=== PATIENT | female | born 1945 | race Caucasian/White ===

== ENCOUNTER → 2021-10-21 | Day surgery (SDC) | payer MEDICARE ==
[2021-10-16 12:46] LABS: BASOPHILS # (AUTO) 0.1 (0.0-0.1); BASOPHILS % 0.8 % (0.0-1.0); EOSINOPHILS # (AUTO) 0.2 (0.0-0.4); EOSINOPHILS % 2.1 % (0.0-6.0); HEMATOCRIT 41.1 % (34.2-44.1); HEMOGLOBIN 13.2 g/dL (12.0-16.0); LYMPHOCYTES # (AUTO) 1.9 (1.0-3.2); LYMPHOCYTES % 20.4 % (18.0-39.1); MEAN CORPUSCULAR HEMOGLOBIN 30.8 pg (28-32); MEAN CORPUSCULAR HGB CONC 32.1 g/dL (31-35); MONOCYTES % 10.9 % (4.4-11.3); NEUTROPHILS % 65.5 % (38.7-80.0); PLATELET COUNT 250 x10e3/uL (140-360); RED BLOOD COUNT 4.28 x10e6/uL (3.6-5.1); RED CELL DISTRIBUTION WIDTH 12.3 % (11.7-14.4)
[2021-10-16 13:10] LABS: ALBUMIN 3.8 g/dL (3.5-5.0); ALBUMIN/GLOBULIN RATIO 1.3 (0.8-2.0); ANION GAP 16.4 mmol/L (8-16); CALCIUM 9.4 mg/dL (8.4-10.2); CREATININE, SERUM 1.2 mg/dL (0.57-1.11); POTASSIUM 4.4 mmol/L (3.5-5.1)
[2021-10-21] VITALS (10 sets, daily range): BP systolic 121–152; BP diastolic 63–97
[~2021-10-21] VITALS: Ht 157.5 cm; Wt 90.3 kg
[~2021-10-21] MED LIST: ALPRAZOLAM 0.5 MG TAB ONE; BRINZOLAMIDE15 ML; DIPHENHYDRAMINE HCL 25 MG CAP ONE; FENTANYL CITRATE/PF 100MCG/2 ML INJ ONE; FUROSEMIDE40 MG PO; HEPARIN SOD/SOD CHLORIDE 2,000 ML ONE; IOPAMIDOL 370 MG/ML 100 ML INFUS..BTL INJ ONE; LIDOCAINE HCL 1% LOCAL INJ 20 ML VIAL ONE; LOSARTAN POTAS100 MG PO; LUMIGAN2.5 M1 OP; MIDAZOLAM HCL 2 MG/2 ML VIAL ONE; MONTELUKAST SOD10 MG PO; SODIUM CHLORIDE 0.9% 1000ML 1,000 ML ONE; SYMBICORT 16010.2 GM INH; VERAPAMIL HCL 2.5 MG/ML 2 ML VIAL ONE; ZYRTEC10 M3 PO; [UNRECOGNIZED DRUG - OTHER]; [UNRECOGNIZED DRUG - OTHER]
== END | disposition home or self-care (01) ==
LOC: CATH LAB 10:43
PROVIDERS: ATTEND Internal Medicine Interventional Cardiology
DX: I25.119 Atherosclerotic heart disease of native coronary artery with unspecified angina pectoris (principal); R94.39 Abnormal result of other cardiovascular function study; Z01.812 Encounter for preprocedural laboratory examination; Z20.822 Contact with and (suspected) exposure to COVID-19; Z79.899 Other long term (current) drug therapy
CPT/HCPCS: 0223U; 36415; 76937; 80053; 85025; 93458; C1894; J2001; J2250; J3010; J7030; Q9967; 99152

== ENCOUNTER 2022-05-14 07:54 | Observation (INO) | payer MEDICARE ==
[2022-05-12 10:57] LABS: BASOPHILS # (AUTO) 0.1 (0.0-0.1); BASOPHILS % 0.7 % (0.0-1.0); EOSINOPHILS # (AUTO) 0.3 (0.0-0.4); EOSINOPHILS % 2.5 % (0.0-6.0); HEMATOCRIT 43.3 % (34.2-44.1); LYMPHOCYTES # (AUTO) 3.2 (1.0-3.2); LYMPHOCYTES % 29.8 % (18.0-39.1); MEAN CORPUSCULAR HGB CONC 32.3 g/dL (31-35); MONOCYTES # (AUTO) 1.2 (0.2-0.8); MONOCYTES % 11.2 % (4.4-11.3); NEUTROPHILS # (AUTO) 5.9 (2.1-6.9); NEUTROPHILS % 55.4 % (38.7-80.0); PLATELET COUNT 266 x10e3/uL (140-360); RED BLOOD COUNT 4.51 x10e6/uL (3.6-5.1); RED CELL DISTRIBUTION WIDTH 13.1 % (11.7-14.4)
[2022-05-12 11:08] LABS: INR 0.91; PROTHROMBIN TIME 12.8 seconds (11.9-14.5)
[2022-05-12 11:09] LABS: PARTIAL THROMBOPLASTIN TIME 38.8 seconds (23.8-35.5)
[2022-05-12 11:17] LABS: CALCIUM 9.6 mg/dL (8.4-10.2); CREATININE, SERUM 1.31 mg/dL (0.57-1.11)
[~2022-05-14] VITALS: Ht 157.5 cm; Wt 90.3 kg
[~2022-05-14 07:54] MED LIST changes: +ACETAMINOPHEN 1000 MG/100 ML 100 ML IV ONE; -ALPRAZOLAM 0.5 MG TAB ONE; +BUPIVACAINE 0.5%/EPI 30 ML SDV INJ ONE; +COMBIVENT RESPIM4 GM IH; -DIPHENHYDRAMINE HCL 25 MG CAP ONE; -FENTANYL CITRATE/PF 100MCG/2 ML INJ ONE; +FLONASE ALLERG9.9 ML INH; -HEPARIN SOD/SOD CHLORIDE 2,000 ML ONE; -IOPAMIDOL 370 MG/ML 100 ML INFUS..BTL INJ ONE; -LIDOCAINE HCL 1% LOCAL INJ 20 ML VIAL ONE; -MIDAZOLAM HCL 2 MG/2 ML VIAL ONE; -SODIUM CHLORIDE 0.9% 1000ML 1,000 ML ONE; +SODIUM CHLORIDE 0.9% 250ML 250 ML ONE; +SUGAMMADEX SODIUM 200 MG/2 ML VIAL IV ONE; +THROMBIN FOR SOLN 5,000 UNIT VIAL ONE; -VERAPAMIL HCL 2.5 MG/ML 2 ML VIAL ONE; +Vancomycin IV 1 GM VIAL ONE
[2022-05-14] MEDS ORDERED: HYDROCODON-ACE1 EA12 PO (09:21)
[2022-05-14] MEDS ORDERED: CARISOPRODOL 350 MG TAB PO PRN (09:30)
[2022-05-14] MEDS ORDERED: MORPHINE SULFATE 5 MG/ML VIAL IM PRN (09:30)
[2022-05-14] MEDS ORDERED: FUROSEMIDE 20 MG TAB PO PRN (09:30)
[2022-05-14] MEDS ORDERED: HYDROMORPHONE 2MG/ML 2 MG/ML ML IV PRN (09:30)
[2022-05-14] MEDS ORDERED: ZOLPIDEM TARTRATE 5 MG TAB PO PRN (09:30)
[2022-05-14] MEDS ORDERED: MAGNESIUM/ALUMINUM/SIMETHICONE 30 ML UDC PO PRN (09:30)
[2022-05-14] MEDS ORDERED: ACETAMINOPHEN 325 MG TAB PO PRN (09:30)
[2022-05-14] MEDS ORDERED: PROMETHAZINE HCL (IM) 25 MG/ML VIAL IM PRN (09:30)
[2022-05-14] MEDS ORDERED: ONDANSETRON HCL INJ 2MG/ML 2ML 2 MG/ML VIAL IV PRN (09:30)
[2022-05-14] MEDS ORDERED: IPRATROPIUM/ALBUTEROL SULFATE 4 GM INH INH PRN (09:30)
[2022-05-14] MEDS ORDERED: FENTANYL CITRATE/PF 100MCG/2 ML INJ ONE ×2 (09:41→12:58)
[2022-05-14] MEDS ORDERED: HYDROMORPHONE 1MG/1ML INJ ONE (10:48)
[2022-05-14 11:06] VITALS: BP_SYST 128; BP_SYST 144; BP_DIAS 62; BP_DIAS 64
[2022-05-14] MEDS ORDERED: ROCURONIUM BROMIDE 10 MG/ML 5ML VIAL IV ONE (11:45)
[2022-05-14] MEDS ORDERED: LIDOCAINE HCL 2% LOCAL INJ 5 ML SDV VIAL INJ ONE (11:45)
[2022-05-14] MEDS ORDERED: DEXAMETHASONE SOD PHOS INJ 4 MG/ML SDV ONE (11:45)
[2022-05-14] MEDS ORDERED: PROPOFOL IV EMULSION 10 MG/ML 20 ML VIAL ONE (11:45)
[2022-05-14] MEDS ORDERED: EPHEDRINE SULFATE INJ 50 MG/ML VIAL ONE (11:45)
[2022-05-14] MEDS ORDERED: ALBUTEROL SULFATE HFA 8GM INHALATION AEROSOL INH ONE (11:45)
[2022-05-14] MEDS ORDERED: SEVOFLURANE INHAL SOLN 250 ML PEN BTL ONE (11:45)
[2022-05-14] MEDS ORDERED: POVIDONE IODINE 0.05% 0.05 % ML PO ONE (11:45)
[2022-05-14] MEDS ORDERED: ONDANSETRON HCL INJ 2MG/ML 2ML 2 MG/ML VIAL ONE (11:45)
[2022-05-14 12:00] VITALS: BP 144/62
[2022-05-14] MEDS: LACTATED RINGER'S 1,000 ML IV SCH ×2 (13:27→17:50)
[2022-05-14 16:33] VITALS: BP 125/62
[2022-05-14] MEDS ORDERED: NON-FORMULARY MEDICATION (Fluticasone Propionate* (Flonase Allergy Relief*) 1 EACH) INH SCH (17:00)
[2022-05-14] MEDS: BRINZOLAMIDE 1% OPTH SUSP 10 ML BTL OU SCH (17:00)
[2022-05-14] MEDS: OXYCODONE/ACETAMINOPHEN 5-325 1 EACH TABLET PO PRN (17:17)
[2022-05-14] MEDS: Vancomycin IV 1 GM in SODIUM CHLORIDE 0.9% 250ML 250 ML IV SCH (20:56)
[2022-05-14 20:57] VITALS: BP 122/59
[2022-05-14] MEDS ORDERED: BIMATOPROST(OPTH) 2.5 ML BOTTLE OP SCH (21:00)
[2022-05-14 22:03] VITALS: BP 122/59
[2022-05-15 00:03] VITALS: BP 120/63
[2022-05-15 00:13] VITALS: BP 120/63
[2022-05-15 04:10] VITALS: BP 131/55
[2022-05-15] MEDS ORDERED: BUDESONIDE/FORMOTEROL 160/4.5MCG INHALER INH SCH (06:00)
[2022-05-15] MEDS: OXYCODONE/ACETAMINOPHEN 5-325 1 EACH TABLET PO PRN (06:21)
[2022-05-15 08:00] VITALS: BP 119/63
[2022-05-15 08:20] VITALS: BP 119/62
[2022-05-15] MEDS: Vancomycin IV 1 GM in SODIUM CHLORIDE 0.9% 250ML 250 ML IV SCH (09:00)
[2022-05-15] MEDS ORDERED: LOSARTAN POTASSIUM 100 MG TAB PO SCH (09:00)
[2022-05-15] MEDS ORDERED: LORATADINE 10 MG TAB PO SCH (09:00)
[2022-05-15] MEDS: BRINZOLAMIDE 1% OPTH SUSP 10 ML BTL OU SCH (09:03)
[2022-05-15] MEDS ORDERED: ONDANSETRON HCL 4 MG ORAL DISINTEGRATING TAB PO PRN (11:00)
[2022-05-15] MEDS ORDERED: FLUTICASONE PROPIONATE NASAL SPRAY NS SCH (17:00)
== END 2022-05-15 11:50 | disposition home or self-care (01) ==
LOC: OR 07:54 → PACU V 09:16 → MED/SURG3 11:08
PROVIDERS: ADMIT Neurological Surgery; ATTEND Neurological Surgery
DX: M48.062 Spinal stenosis, lumbar region with neurogenic claudication (principal); Z01.818 Encounter for other preprocedural examination; Z20.822 Contact with and (suspected) exposure to COVID-19; Z85.118 Personal history of other malignant neoplasm of bronchus and lung; I10 Essential (primary) hypertension; J44.9 Chronic obstructive pulmonary disease, unspecified
CPT/HCPCS: 0223U; 36415; 63047; 63048; 71046; 72020; 80048; 85025; 85610; 85730; 86850; 86900; 88304; 88311; 93005; 94664; 94799; 97116; 97161; 97530; 99252; G0378 ×2; J0131; J1170; J2405; J3010; J3370 ×2; J7050 ×2; J7121; J1100; J2001

== ENCOUNTER 2023-09-14 13:01 | Emergency (ER) | payer MEDICARE ==
[~2023-09-14] VITALS: Ht 160 cm; Wt 86.2 kg
[~2023-09-14 13:01] MED LIST changes: -ACETAMINOPHEN 1000 MG/100 ML 100 ML IV ONE; -BUPIVACAINE 0.5%/EPI 30 ML SDV INJ ONE; +HYDROCODON-ACE1 EA12 PO; -SODIUM CHLORIDE 0.9% 250ML 250 ML ONE; -SUGAMMADEX SODIUM 200 MG/2 ML VIAL IV ONE; -THROMBIN FOR SOLN 5,000 UNIT VIAL ONE; -Vancomycin IV 1 GM VIAL ONE
[2023-09-14 13:24] VITALS: PULSE 80; RESP 16; TEMP 98.2
[2023-09-14] MEDS: TRAMADOL HCL 50 MG TAB PO ONE (13:45)
[2023-09-14] MEDS: TETANUS/DIPHTHERIA TOX ADULT 0.5 ML SYR IM ONE (13:46)
[2023-09-14 15:45] VITALS: BP 150/67; PULSE 78; RESP 18; O2SAT 100
[2023-09-14] MEDS: LIDOCAINE 2%/ EPINEPHRINE 20ML MDV INJ ONE (16:00)
== END 2023-09-14 15:45 | disposition home or self-care (01) ==
LOC: ER 13:12
DX: S81.011A Laceration without foreign body, right knee, initial encounter (principal); W19.XXXA Unspecified fall, initial encounter; Y93.A1 Activity, exercise machines primarily for cardiorespiratory conditioning; Y92.89 Other specified places as the place of occurrence of the external cause; I10 Essential (primary) hypertension; J44.9 Chronic obstructive pulmonary disease, unspecified; Z85.118 Personal history of other malignant neoplasm of bronchus and lung
CPT/HCPCS: 73562; 90471; 90714; 99283; J2001